=== PATIENT | female | born 1945 | race Caucasian/White ===

== ENCOUNTER 2017-12-24 08:00 | Outpatient (CLI) | payer MEDICARE ==
--- NOTE | 2017-12-24 11:12 | RAD ---
FOUR VIEWS LUMBAR SPINE: INDICATIONS: Low back pain that radiates down the left leg, for six weeks. COMPARISON: Prior radiographs dated 05/02/2014. FINDINGS: There are five lumbar type vertebrae. There is mild degenerative levoscoliosis at L3-L4. There is g rade 1 anterolisthesis of L4 on L5. There is advanced disk degenerative disease at L3-L4 and at L4-L 5. There is multilevel facet osteoarthrosis, most prominent affecting L3-L4 through L5-S1. There is slight retrolisthesis of L3 on L4. No acute fracture is evident. The retrolisthesis of L3-L4 reduc es with flexion. L4-L5 anterolisthesis is slightly accentuated with flexion and slightly reduces wit h extension. There is mild degenerative change in both SI joints. IMPRESSION: 1. Moderate to severe multilevel spondylosis of the lumbar spine, most pronounced at L3-L4 and at L4 -L5. 2. There is grade 1 anterolisthesis of L4 on L5 and slight retrolisthesis of L3 on L4. There is abn ormal translational motion at the intervertebral segments with flexion and extension. POS: [facility]
--- NOTE | 2017-12-24 11:18 | MRI ---
MRI OF THE LUMBAR SPINE WITHOUT CONTRAST: INDICATION: History of lumbar radiculopathy. COMPARISON: Prior lumbar spinal radiograph dated 05/02/14. FINDINGS: There are 5 lumbar-type vertebrae. There is grade I anterolisthesis of L4 on L5. Conus is seen to t erminate at L1. Visualized retroperitoneum and paravertebral soft tissues are unremarkable. At L5-S1, there is moderate left and mild right facet joint degenerative. There is no appreciable ce ntral canal or neural foraminal narrowing. At L4-5, there is moderate to severe central canal narrowing due to the anterolisthesis, facet hypert rophy, and broad-based bulge. Loss of disk space height in addition to the anterolisthesis induces m oderate bilateral neural foraminal narrowing. At L3-4, there is a broad-based bulge with facet hypertrophy inducing mild central canal narrowing wi th mild to moderate right neural foraminal narrowing. There is mild retrolisthesis. At L2-3, there is a broad-based bulge with facet hypertrophy inducing mild bilateral neural foraminal narrowing. At L1-2: There is a mild broad-based bulge with facet hypertrophy without appreciable central canal or neural foraminal narrowing. At T12-L1, there is mild broad-based bulge. IMPRESSION: 1. Moderate to severe multilevel spondylosis of the lumbar spine with grade I anterolisthesis of L4 and L5. The anterolisthesis at L4-5 in addition to facet hypertrophy and a broad-based bulge inducin g moderate to severe central canal narrowing with moderate bilateral neural foraminal narrowing. 2. Mild central canal narrowing at L3-4 with mild to moderate right neural foraminal narrowing. POS: [facility]
== END 2017-12-24 08:01 | disposition home or self-care (01) ==
LOC: SCSMRI 08:00
PROVIDERS: ATTEND Surgery
DX: M47.26 Other spondylosis with radiculopathy, lumbar region (principal); M43.16 Spondylolisthesis, lumbar region; R93.7 Abnormal findings on diagnostic imaging of other parts of musculoskeletal system; M51.16 Intervertebral disc disorders with radiculopathy, lumbar region; M48.061 Spinal stenosis, lumbar region without neurogenic claudication; M99.83 Other biomechanical lesions of lumbar region
CPT/HCPCS: 72120; 72148

== ENCOUNTER 2018-01-08 09:47 | Outpatient (CLI) | payer MEDICARE ==
--- NOTE | 2018-01-08 11:35 | CT ---
CT LUMBAR SPINE WITHOUT CONTRAST: HISTORY: Lumbar radiculopathy. Severe left buttock and leg pain, which has now cleared. Low back pain x6 wee ks. COMPARISON: None. TECHNIQUE: A lumbar spine CT is performed without contrast. Reformatted images are submitted for interpretation . FINDINGS: Symmetric attenuation of the psoas muscles. The visualized solid organs are unremarkable. Nonobstru cting calcification in the left renal pelvis. The visualized alimentary canal is unremarkable. Atherosclerosis of a nonaneurysmal aorta. Lumbar spine vertebral body height is maintained. No fracture. There is 6 mm of anterolisthesis of L4 upon L5. Limited evaluation of the contents of the central spinal canal and neural foramina due to technique. T11-T12: No significant central canal stenosis. The foramina are patent. T12-L1: No significant central canal stenosis. The neural foramina are patent. L1-L2: No significant central canal stenosis. The neural foramina are patent. L2-L3: Generalized disk bulge, ligamentum flavum thickening, and facet hypertrophy on mild central c anal stenosis. The neural foramina are patent bilaterally. L3-L4: Generalized disk bulge, ligamentum flavum thickening, and facet hypertrophy result in mild jag tral canal stenosis. Mild bilateral foraminal narrowing. L4-L5: Vacuum disk phenomenon. Generalized disk bulge, ligamentum flavum thickening, and facet hype rtrophy result in moderate to severe central canal stenosis. Moderate bilateral foraminal narrowing. L5-S1: There is a right laminectomy defect with soft tissue attenuation, suggesting scar tissue. No high-grade central canal stenosis. There is a left facetectomy. The neural foramina are patent. Calcification of the left ligamentum is noted. IMPRESSION: 1. Post surgical changes at L4-L5 and at L5-S1. 2. Moderate central canal stenosis at L4-L5. There is associated grade 1 anterolisthesis. POS: [facility]
== END 2018-01-08 09:48 | disposition home or self-care (01) ==
LOC: SCSCT 09:47
PROVIDERS: ATTEND Surgery
DX: M54.16 Radiculopathy, lumbar region (principal); M48.061 Spinal stenosis, lumbar region without neurogenic claudication; M43.16 Spondylolisthesis, lumbar region; Z98.890 Other specified postprocedural states
CPT/HCPCS: 72131

== ENCOUNTER 2018-12-09 14:50 | Emergency (ER) | payer MEDICARE ==
[2018-12-09 15:25] LABS: Bilirubin Negative (Negative); Blood, Urine Large (Negative); Glucose, Urine (Dipstick) Negative (Negative); Leukocyte Negative (Negative); Nitrite Negative (Negative); Protein, Urine (Dipstick) Negative (Neg-Trace); Specific Gravity, Urine 1.015 (1.005-1.030); Urobilinogen 0.2 mg/dL (0.2-1.0)
[2018-12-09 15:26] LABS: Clarity Hazy (Clear)
[2018-12-09 15:33] LABS: Bacteria/HPF 1+ HPF (None Seen); WBC/HPF None Seen HPF (0-3)
[2018-12-09 15:37] LABS: #Basophils 0.1 thou/uL (0.0-0.2); #Eosinphils 0.1 thou/uL (0.0-0.7); #Lymphocytes 1.4 thou/uL (1.20-3.40); #Monocytes 0.3 thou/uL (0.11-0.59); #Neutrophils 4.9 thou/uL (1.40-6.50); %Basophils 1.4 % (0.0-1.0); %Eosinophils 1.4 % (0.0-10.0); %Lymphocytes 20.8 % (21.0-51.0); %Monocytes 4.4 % (0.0-10.0); %Neutrophils 72.1 % (42.0-75.0); Hemoglobin 13.7 g/dL (12.0-16.0); Mean Corpuscular HGB CONC 30.7 g/dL (32.0-36.0); Mean Corpuscular Hemoglobin 26.9 pg (27.0-31.0); Mean Corpuscular Volume 87.7 fL (78.0-98.0); Mean Platelet Volume 8.7 fL (7.4-10.4); Platelet Count 240 thou/uL (130-400); RBC Distribution Width 13.5 % (11.5-14.5); Red Blood Cell (RBC) Count 5.09 mill/uL (4.20-5.40); White Blood Cell (WBC) Count 6.8 thou/uL (4.8-10.8)
[2018-12-09 15:53] LABS: ALT (SGPT) 33 U/L (8-55); AST (SGOT) 34 U/L (5-34); Albumin 4.2 g/dL (3.4-4.8); Alkaline Phosphatase 91 U/L (40-150); Anion Gap 14 mmol/L (10-20); BUN (Urea Nitrogen) 20 mg/dL (9.8-20.1); Bilirubin, Total 0.2 mg/dL (0.2-1.2); CK (CPK) 68 U/L (29-168); Calc. Creatinine Clearance 0 mL/min (70-130); Calcium 9.7 mg/dL (7.8-10.44); Carbon Dioxide 26 mmol/L (23-31); Chloride 102 mmol/L (98-107); Estimated GFR-MDRD 70; Globulin 2.9 g/dL (2.4-3.5); Glucose 70 mg/dL (83-110); Lipase 49 U/L (8-78); Potassium 4.3 mmol/L (3.5-5.1); Protein, Total 7.1 g/dL (6.0-8.3); Sodium 138 mmol/L (136-145)
--- NOTE | 2018-12-09 16:00 | RAD ---
SINGLE VIEW CHEST: HISTORY: Weakness. Malaise. Chest pain. COMPARISON: None. FINDINGS: Single view of the chest show normal sized cardiomediastinal silhouette. There is no evidence of cons olidation, mass, or pleural effusion. The bones are unremarkable. IMPRESSION: No evidence of acute cardiopulmonary disease. POS: [facility]
== END 2018-12-09 16:47 | disposition home or self-care (01) ==
LOC: SCSER 14:50
DX: R53.1 Weakness (principal); Z79.899 Other long term (current) drug therapy; Z79.82 Long term (current) use of aspirin
CPT/HCPCS: 71045; 80053; 81003; 81015; 82550; 83690; 84484; 85025; 93005; 96360

== ENCOUNTER 2018-12-12 10:08 | Observation (INO) | payer MEDICARE ==
[2018-12-12] MEDS ORDERED: Ondansetron PF 4 MG/2 ML Vial ONE (10:30)
[2018-12-12 10:39] LABS: #Basophils 0.1 thou/uL (0.0-0.2); #Lymphocytes 1.4 thou/uL (1.20-3.40); #Monocytes 0.2 thou/uL (0.11-0.59); #Neutrophils 7.1 thou/uL (1.40-6.50); %Basophils 1.2 % (0.0-1.0); %Eosinophils 0.3 % (0.0-10.0); %Lymphocytes 16.2 % (21.0-51.0); %Monocytes 2.3 % (0.0-10.0); %Neutrophils 80.1 % (42.0-75.0); Hemoglobin 13.5 g/dL (12.0-16.0); Mean Corpuscular Hemoglobin 26.7 pg (27.0-31.0); Mean Corpuscular Volume 86.2 fL (78.0-98.0); Mean Platelet Volume 7.4 fL (7.4-10.4); Platelet Count 223 thou/uL (130-400); RBC Distribution Width 12.9 % (11.5-14.5); Red Blood Cell (RBC) Count 5.03 mill/uL (4.20-5.40); White Blood Cell (WBC) Count 8.9 thou/uL (4.8-10.8)
[2018-12-12 10:54] LABS: ALT (SGPT) 30 U/L (8-55); AST (SGOT) 24 U/L (5-34); Alkaline Phosphatase 81 U/L (40-150); Anion Gap 12 mmol/L (10-20); BUN (Urea Nitrogen) 25 mg/dL (9.8-20.1); Bilirubin, Total 0.3 mg/dL (0.2-1.2); Calc. Creatinine Clearance 0 mL/min (70-130); Calcium 9.6 mg/dL (7.8-10.44); Carbon Dioxide 27 mmol/L (23-31); Chloride 104 mmol/L (98-107); Estimated GFR-MDRD 49; Globulin 2.5 g/dL (2.4-3.5); Glucose 117 mg/dL (83-110); Protein, Total 6.5 g/dL (6.0-8.3); Sodium 139 mmol/L (136-145)
[2018-12-12 11:15] LABS: Troponin I Less than 0.010 ng/mL (< 0.028)
[2018-12-12] MEDS ORDERED: Promethazine HCl 25 MG/ML VIAL ONE (11:25)
[2018-12-12 12:44] LABS: Bilirubin Negative (Negative); Blood, Urine Large (Negative); Glucose, Urine (Dipstick) Negative (Negative); Leukocyte Negative (Negative); Nitrite Negative (Negative); Protein, Urine (Dipstick) Negative (Neg-Trace); Specific Gravity, Urine 1.015 (1.005-1.030); Urobilinogen 0.2 mg/dL (0.2-1.0); pH, Urine 8.5 (5.0-9.0)
[2018-12-12 12:49] LABS: Bacteria/HPF Rare-Few HPF (None Seen); Clarity Hazy (Clear); RBC/HPF 21-50 HPF (0-3); WBC/HPF None Seen HPF (0-3)
[2018-12-12] MEDS ORDERED: Sodium Chloride 0.9% 1,000 ML IV SCH (13:00)
--- NOTE | 2018-12-12 13:34 | CT ---
CT ABDOMEN AND PELVIS WITH IV CONTRAST: DATE: 12/12/2018. PROVIDED CLINICAL HISTORY: Abdominal pain. FINDINGS: The visualized lung bases are free of significant opacity. The liver, spleen, pancreas, kidneys, and adrenal glands demonstrate an unremarkable CT appearance. No bowel dilatation, inflammatory fat stranding, free fluid, or free air apparent. The appendix was not distinctly identified. There is conspicuous colonic fecal retention suggesting constipation. Va scular calcification is noted involving the abdominal aorta. The osseous structures demonstrate no c oncerning osteoblastic or osteolytic lesions. Degenerative changes are seen involving the lumbar spi ne. IMPRESSION: Conspicuous colonic fecal retention, suggesting constipation. No evidence for an acute process. POS: [facility]
[2018-12-12] MEDS ORDERED: Ondansetron ODT 4 MG TAB SL PRN (14:29)
[2018-12-12] MEDS ORDERED: Acetaminophen 325 MG TAB PO PRN (14:29)
[2018-12-12 15:08] VITALS: BMI 20.9
[2018-12-12] MEDS ORDERED: Bisacodyl 5 MG TAB PO PRN (15:19)
[2018-12-12] MEDS: Ondansetron PF 4 MG/2 ML Vial IVP PRN (15:23)
[2018-12-12] MEDS ORDERED: Bisacodyl 10 MG SUPP PR SCH (15:30)
[2018-12-12] MEDS: Sodium Chloride 0.9% 1,000 ML IV SCH (15:57)
[2018-12-12] MEDS ORDERED: Senokot S 8.6-50 MG TAB PO SCH (16:15)
[2018-12-12] MEDS ORDERED: Enoxaparin Sodium 30 MG/0.3 ML SYRINGE SC SCH (16:30)
[2018-12-12] MEDS: traMADol HCl 50 MG TAB PO PRN ×2 (17:07→21:35)
--- NOTE | 2018-12-12 17:17 | HP ---
CHIEF COMPLAINT: Left-sided abdominal pain and nausea. HISTORY OF PRESENT ILLNESS: This is a pleasant 73-year-old woman who presents with complaints of left-sided abdominal pain that started early hours of this morning at approximately 6 a.m. She states the pain occasionally wraps around to her left side and has been intermittent since, it is worst, it is approximately 7/10 in severity, which she describes as a sharp pain. She reports having persistent nausea and vomited once early this morning. Denies any hematemesis. Reports having issues with constipation chronically, but most recently noticed her bowels have slowed down further since starting amitriptyline. Normally, she medicates with prunes and prune juice. Her last bowel movement was 3 days ago, and she states she had a very large movement; however, stool was hard. For the last week, she has had minimal oral intake and has been minimally active at times due to feeling generally unwell and weak. She states she began to feel poorly after receiving her second injection for shingles 2 weeks ago. She was in bed for 3 days at the early part of the last 2 weeks. She ended up with a decubitus ulcer, stage I. The patient states in the last week, she has been more active, but still very much fatigued. Denies having any fevers, chills, or sweats. She has not noted any melena or blood in stool. She has been passing wind. REVIEW OF SYSTEMS: The patient reports having an occasional throbbing headache which she attributes to previous issues with headache and facial spasms for which she underwent some sort of surgery in the past with placement of an implant at the brainstem. The patient sees Dr. Milton for this and actually has a followup next week. Denies any visual disturbances. Has not had any speech changes. She denies any recent fevers, chills, or sweats. No dizziness. Has not had any chest pain, palpitations, or shortness of breath. No cough or hemoptysis. Denies any urinary complaints such as dysuria, hematuria, urgency, or frequency. All other review of systems are negative. ALLERGIES: PENICILLIN. CURRENT MEDICATIONS: Amitriptyline. PHYSICAL EXAMINATION: GENERAL: The patient appears fatigued, but well developed and in no acute distress. VITAL SIGNS: Temperature 98.1, pulse 89, respirations 18, O2 saturation 96% on room air, and blood pressure 160/88. HEENT: Normocephalic and atraumatic. Pupils are equal, round, and reactive to light. Sclerae are without icterus. Oropharynx is clear. NECK: Supple without lymphadenopathy. LUNGS: Clear to auscultation bilaterally without wheezes, rales, or rhonchi. CARDIAC: Regular rate and rhythm. ABDOMEN: Soft with left lower quadrant tenderness to deep palpation. No guarding or rigidity. Mild left renal angle tenderness. EXTREMITIES: No clubbing, cyanosis, or edema. NEUROLOGIC: Alert and oriented x3. SKIN: Without rash or jaundice. PAST MEDICAL HISTORY: Chronic headaches. PAST SURGICAL HISTORY: 1. Brainstem surgery for placement and then adjustment of a "patch/implant.". 2. Tubal ligation. 3. Tonsillectomy. SOCIAL HISTORY: The patient is normally fully independent and lives with her . She denies any tobacco use or heavy alcohol use. No illicit drug use. LABORATORY DATA: Full blood count unremarkable. Sodium 139, potassium 4.0, BUN 25, creatinine 1.09, GFR 49, and glucose 117. LFTs unremarkable. Lipase normal. Albumin 4.0. Troponin negative. Urinalysis notable for large blood and 21 to 50 red blood cells with 4 to 6 squamous epithelial cells. Rare to few bacteria. No nitrites. IMAGING DATA: CT abdomen and pelvis done on 12/12/2018. Conspicuous colonic fecal retention suggesting constipation. No evidence for an acute process. No bowel dilatation, inflammatory fat stranding, free fluid, or free air appearing. Liver, spleen, pancreas, kidneys, and adrenal glands are unremarkable. Degenerative changes seen in the lumbar spine. IMPRESSION AND PLAN: Mrs. Bergman is a very pleasant 73-year-old woman who is being admitted for management of the following; 1. Abdominal pain, status post CT scan showing essentially fecal retention. We will give Dulcolax suppositories and p.o. senna. If no improvement, we will give a Fleet Enema. She has been passing wind despite episode of vomiting and does not have any abdominal distention. No signs of obstruction clinically or on imaging. We will continue to manage conservatively. For her pain, we will give tramadol. 2. Dehydration. The patient is generally weak and has had minimal oral intake. We would continue IV fluids. 3. Nausea. We will continue Zofran p.r.n. 4. Gastrointestinal prophylaxis. 5. Deep venous thrombosis prophylaxis. 6. Full code status. Her surrogate decision maker is her , Valerio Bergman. 7. Diet. We will provide clear liquid diet for now and advance as tolerated. The patient's case was discussed with Dr. Campos, who agrees upon care as described above. Job ID: [id number]
[2018-12-12] MEDS: Senokot S 8.6-50 MG TAB PO SCH (19:41)
[2018-12-12] MEDS: Famotidine/PF 20 mg/2ml Vial SLOW IVP SCH (19:41)
[2018-12-13] MEDS ORDERED: Ondansetron PF 4 MG/2 ML Vial IVP PRN (02:33)
[2018-12-13] MEDS ORDERED: Ondansetron ODT 4 MG TAB PO PRN (02:33)
[2018-12-13] MEDS: Ondansetron PF 4 MG/2 ML Vial IVP PRN (02:36)
[2018-12-13] MEDS: traMADol HCl 50 MG TAB PO PRN ×2 (02:38→06:19)
[2018-12-13] MEDS: Sodium Chloride 0.9% 1,000 ML IV SCH (02:40)
[2018-12-13 06:28] LABS: #Basophils 0.1 thou/uL (0.0-0.2); #Lymphocytes 1.7 thou/uL (1.20-3.40); #Monocytes 0.6 thou/uL (0.11-0.59); #Neutrophils 7.9 thou/uL (1.40-6.50); %Basophils 0.5 % (0.0-1.0); %Eosinophils 0.2 % (0.0-10.0); %Lymphocytes 16.7 % (21.0-51.0); %Monocytes 5.7 % (0.0-10.0); %Neutrophils 76.9 % (42.0-75.0); Hemoglobin 12.2 g/dL (12.0-16.0); Mean Corpuscular HGB CONC 32.1 g/dL (32.0-36.0); Mean Corpuscular Hemoglobin 28.2 pg (27.0-31.0); Mean Platelet Volume 7.9 fL (7.4-10.4); Platelet Count 238 thou/uL (130-400); RBC Distribution Width 12.5 % (11.5-14.5); Red Blood Cell (RBC) Count 4.31 mill/uL (4.20-5.40); White Blood Cell (WBC) Count 10.2 thou/uL (4.8-10.8)
[2018-12-13 06:51] LABS: Anion Gap 9 mmol/L (10-20); BUN (Urea Nitrogen) 19 mg/dL (9.8-20.1); Calc. Creatinine Clearance 52 mL/min (70-130); Calcium 8.8 mg/dL (7.8-10.44); Carbon Dioxide 27 mmol/L (23-31); Chloride 104 mmol/L (98-107); Estimated GFR-MDRD 65; Glucose 108 mg/dL (83-110); Potassium 3.9 mmol/L (3.5-5.1); Sodium 136 mmol/L (136-145)
[2018-12-13] MEDS: Senokot S 8.6-50 MG TAB PO SCH (08:10)
[2018-12-13] MEDS: Famotidine/PF 20 mg/2ml Vial SLOW IVP SCH (08:10)
[2018-12-13 08:16] VITALS: BP 100/51; TEMP 97.5
[2018-12-13] MEDS ORDERED: Enoxaparin Sodium 30 MG/0.3 ML SYRINGE SC SCH (09:00)
[2018-12-13] MEDS ORDERED: Magnesium Citrate 300 ML BOT PO PRN (11:01)
[2018-12-13] MEDS ORDERED: Fleet Enema 133 ML BOT PR SCH (11:30)
--- NOTE | 2018-12-14 00:22 | DIS ---
DATE OF ADMISSION: 12/12/2018 DATE OF DISCHARGE: 12/13/2018 ALLERGIES: PENICILLIN. CHIEF COMPLAINT: Left-sided abdominal pain and nausea. FINAL DIAGNOSES: 1. Constipation with colonic fecal retention per CT, s/p 2 large bowel movements , presenting symptoms now resolved. 2. Abdominal pain secondary to above, resolved. PROCEDURES PERFORMED: None. LABORATORY RESULTS: White blood cell count 10.2, hemoglobin 12.2, hematocrit 37.9, and platelet count 238. Sodium 136, potassium 3.9, chloride 104, carbon dioxide 27, anion gap 9, BUN 19, creatinine 0.86, and glucose 108. AST, ALT, and alkaline phosphatase all within normal limits. Creatine kinase 88. Troponin negative. Albumin 4.0. Urinalysis negative for UTI. IMAGING RESULTS: CT scan of abdomen and pelvis with IV contrast showed conspicuous colonic fecal retention, suggesting constipation. No evidence for an acute process, no bowel dilatation, inflammatory fat stranding, free fluid or free air apparent. Chest x-ray performed on 12/09/2018 showed no acute evidence of cardiopulmonary disease. CONSULTATIONS: None. HOSPITAL COURSE: The patient is a pleasant 73-year-old female with past medical history significant for chronic constipation in the past, and recent initiation of amitriptyline, who presented with left-sided abdominal pain and nausea that started yesterday around 6:00 a.m. She stated that the pain occasionally wrapped around her left side and at its worst was approximately 7 to 10 in severity. She described the pain as sharp. Associated symptoms included nausea and 1 episode of emesis. As mentioned, the patient does have a history of chronic constipation, however, she has noticed that it has been worse since starting on amitriptyline for some headache and facial spasms that she was having. Her last bowel movement was over 3 days ago prior to her arrival at the hospital. She was also more sedentary than normal, secondary to feeling poorly after a shingles vaccination. On arrival, CT of the abdomen and pelvis described as above was positive for feces, consistent with constipation. The patient was given Senokot as well as suppositories. She had 1 bowel movement the morning after her admission with some improvement in her symptoms. She was then given a Fleet enema. The patient had a large bowel movement, and feels much improved. All of her presenting symptoms have resolved. She has had no further abdominal discomfort or pain. She denies chest pain or shortness of breath. She has ambulated. PHYSICAL EXAMINATION: VITAL SIGNS: Blood pressure 100/51, pulse is 80, temperature afebrile, O2 saturation 95% on room air, and respirations 16. GENERAL: The patient is awake and alert, in no acute distress. She is sitting up comfortably in bed. HEENT: Atraumatic and normocephalic. Eye movement intact. NECK: Supple. No lymphadenopathy. No JVD. No carotid bruits. RESPIRATORY: Regular respiratory rate and pattern, clear to auscultation bilaterally. No rhonchi, wheeze, or crackles. CV: S1, S2. Regular rate and rhythm. No appreciable murmurs, rubs, or gallops. GI: Positive bowel sounds through all 4 quadrants. Nontender. PERIPHERAL VASCULAR: No lower extremity pitting edema. +2 DP pulses bilaterally. MUSCULOSKELETAL: No joint effusion or swelling. NEUROLOGIC: Awake and alert. Cranial nerves 2 through 12 grossly intact. No focal deficits. SKIN: Normal and dry. No skin discoloration. CONDITION AT DISCHARGE: Stable. DISCHARGE MEDICATIONS: 1. Atenolol 25 mg tablet one tablet p.o. daily. 2. Senokot 2 tablets p.o. b.i.d. 3. Ipratropium bromide nasal spray as directed. I have advised the patient to discontinue her amitriptyline given the worsening constipation after she started it. She has an appointment with her primary care physician, Dr. Milton this week to discuss. She will continue on high-fiber diet, along with ambulation to improve the frequency of bowel movements. She does have a stage I decubitus ulcer also that is being treated as an outpatient. It is healing well. All questions were answered to the patient's satisfaction. She will return with any recurrence of her symptoms. Care discussed with Dr. Napoles, who agrees with discharge as described above. Job ID: [id number] [facility]
== END 2018-12-13 17:02 | disposition home or self-care (01) ==
LOC: SCSER 10:08 → T4-B 13:16
PROVIDERS: ADMIT Internal Medicine; ATTEND Internal Medicine
DX: K59.09 Other constipation (principal); E86.0 Dehydration; Z79.899 Other long term (current) drug therapy; Z88.0 Allergy status to penicillin; Z98.890 Other specified postprocedural states
CPT/HCPCS: 74177; 80048; 80053; 82550; 83690; 84484; 85025 ×2; 93005; 94760; 96361 ×2; 96365; 96372 ×2; 96375 ×2; 96376 ×2; 97139; 99285; G0378 ×2; 36415; 81003; 81015; J1650; J2405; J2550; Q0162; S0028

== ENCOUNTER 2018-12-14 11:05 | Observation (INO) | payer MEDICARE ==
[2018-12-14] MEDS ORDERED: Fentanyl 100 MCG/2 ML VIAL ONE ×2 (11:31→14:06)
[2018-12-14 11:48] LABS: #Basophils 0.1 thou/uL (0.0-0.2); #Lymphocytes 2.1 thou/uL (1.20-3.40); #Monocytes 0.6 thou/uL (0.11-0.59); #Neutrophils 8.8 thou/uL (1.40-6.50); %Basophils 0.6 % (0.0-1.0); %Eosinophils 0.3 % (0.0-10.0); %Monocytes 5.3 % (0.0-10.0); %Neutrophils 75.9 % (42.0-75.0); Hemoglobin 12.9 g/dL (12.0-16.0); Mean Corpuscular HGB CONC 31.8 g/dL (32.0-36.0); Mean Corpuscular Hemoglobin 27.6 pg (27.0-31.0); Mean Corpuscular Volume 86.8 fL (78.0-98.0); Mean Platelet Volume 8.1 fL (7.4-10.4); Platelet Count 248 thou/uL (130-400); RBC Distribution Width 12.7 % (11.5-14.5); Red Blood Cell (RBC) Count 4.69 mill/uL (4.20-5.40); White Blood Cell (WBC) Count 11.6 thou/uL (4.8-10.8)
[2018-12-14] MEDS ORDERED: Ondansetron PF 4 MG/2 ML Vial ONE (12:04)
--- NOTE | 2018-12-14 12:07 | CT ---
CT AORTOGRAM CHEST AND ABDOMEN WITH IV CONTRAST: Date: 12/14/18 Multiple axial tomograms obtained of the chest and abdomen following aortogram protocol with multipla dewey reconstruction and 3D postprocessing. INDICATION: Abdominal pain. Correlation made to recent CT abdomen and pelvis dated 12/12/18 which showed evidence of fecal retention and constipation. The thoracic and abdominal aorta are unremarkable. There are mild atherosclerotic changes in the abdo sadie aorta. There is no evidence of aneurysm. No evidence of aortic dissection. The lungs appear clear. No infiltrate or effusion. Mediastinum unremarkable. The pulmonary arteries a re opacified. There is no evidence of proximal pulmonary embolus. Images through the abdomen show unremarkable liver, spleen, and pancreas, Adrenal glands and kidneys are unremarkable. Bowel loops are unremarkable. Stool again noted throughout the colon. IMPRESSION: No evidence of thoracic or abdominal aortic dissection or aneurysm. POS: [facility]
[2018-12-14 12:08] LABS: ALT (SGPT) 19 U/L (8-55); AST (SGOT) 19 U/L (5-34); Albumin 3.9 g/dL (3.4-4.8); Alkaline Phosphatase 83 U/L (40-150); Anion Gap 11 mmol/L (10-20); BUN (Urea Nitrogen) 13 mg/dL (9.8-20.1); Bilirubin, Total 0.4 mg/dL (0.2-1.2); Calc. Creatinine Clearance 0 mL/min (70-130); Calcium 9.4 mg/dL (7.8-10.44); Carbon Dioxide 28 mmol/L (23-31); Chloride 103 mmol/L (98-107); Estimated GFR-MDRD 58; Globulin 2.6 g/dL (2.4-3.5); Glucose 129 mg/dL (83-110); Lipase 14 U/L (8-78); Potassium 3.9 mmol/L (3.5-5.1); Protein, Total 6.5 g/dL (6.0-8.3); Sodium 138 mmol/L (136-145)
[2018-12-14] MEDS ORDERED: ISOVUE-370 76%-LOCM 1 ML ONE (13:44)
[2018-12-14] MEDS ORDERED: Acetaminophen 325 MG TAB PO PRN ×2 (16:06→16:11)
[2018-12-14] MEDS ORDERED: Sodium Chloride 0.65% Nasal 44 ML BOT EA NARE PRN (16:11)
[2018-12-14] MEDS ORDERED: Bisacodyl 10 MG SUPP PR PRN (16:11)
[2018-12-14] MEDS ORDERED: Ondansetron ODT 4 MG TAB PO PRN (16:11)
[2018-12-14] MEDS ORDERED: Zolpidem Tartrate 5 MG TAB PO PRN (16:11)
[2018-12-14] MEDS ORDERED: Ondansetron PF 4 MG/2 ML Vial IVP PRN (16:11)
[2018-12-14] MEDS ORDERED: Loratadine 10 MG TAB PO PRN (16:11)
[2018-12-14] MEDS ORDERED: Eucerin (Mineral Oil/Petrolatum,White) 30 gm Jar TOP PRN (16:11)
[2018-12-14] MEDS ORDERED: Bisacodyl 5 MG TAB PO PRN (16:11)
[2018-12-14] MEDS ORDERED: hydrALAZINE 20 MG/ML VIAL SLOW IVP PRN (16:11)
[2018-12-14] MEDS ORDERED: Artificial Tear Sol 15 ML BOT EA EYE PRN (16:11)
[2018-12-14] MEDS ORDERED: Senokot S 8.6-50 MG TAB PO PRN (16:11)
[2018-12-14] MEDS ORDERED: Cepastat Lozenges 1 LOZ PO PRN (16:11)
[2018-12-14] MEDS ORDERED: Diabetic Tussin 200 MG/10 ML UDCUP PO PRN (16:11)
[2018-12-14 16:16] LABS: Lactic Acid 0.9 mmol/L (0.5-2.2)
--- NOTE | 2018-12-14 16:27 | HP ---
PRIMARY CARE PHYSICIAN: Maurice Milton MD REASON FOR ADMISSION: Severe abdominal pain and constipation. HISTORY OF PRESENT ILLNESS: A 73-year-old female, who was admitted in our hospital on December 12, 2018. At that time, the patient presented to emergency room with left-sided abdominal pain, nausea. She had CT abdomen and pelvis which showed fecal retention suggestive of severe constipation without any acute process. After admission in the hospital, the patient was treated with stool softener and she had significant amount of bowel movement. The patient was discharged home yesterday, but the patient continued to have some type of abdominal pain without any improvement. Today, she had CT aortogram of chest and abdomen, which did not show any acute process, but she still has stool throughout in her colon. The patient predominantly has pain in her left lower quadrant. She denies any fever or chills. This time, she denies any nausea or vomiting. She denies any shortness of breath. The patient reports that this time constipation got worse after receiving amitriptyline. The patient also had recently nonspecific reaction after shingles injection. Normally, the patient has good bowel movement, but for last 3 to 4 days, she is suffering from more constipation as she tried prunes and [id number] medication without any significant improvement. The patient denies any narcotics. This time, she denies any abdominal distention, nausea, vomiting. She denies any hay fever, chills, but main problem is her left-sided abdominal pain. She denies any hematochezia, melena, or urinary tract infection symptoms. REVIEW OF SYSTEMS: CONSTITUTIONAL: Negative for weight loss or gain, ability to conduct usual activities. SKIN: Negative for rash, itching. EYES: Negative for double vision, pain. ENT/MOUTH: Negative for nose bleeding, neck stiffness, pain, tenderness. CARDIOVASCULAR: Negative for palpitations, dyspnea on exertion, orthopnea. RESPIRATORY: Negative for shortness of breath, wheezing, cough, hemoptysis, fever or night sweats. GASTROINTESTINAL: Negative for poor appetite, abdominal pain, heartburn, nausea, vomiting, constipation, or diarrhea. GENITOURINARY: Negative for urgency, frequency, dysuria, nocturia. MUSCULOSKELETAL: Negative for pain, swelling. NEUROLOGIC/PSYCHIATRIC: Negative for anxiety, depression. ALLERGY/IMMUNOLOGIC: Negative for skin rash, bleeding tendency. Please see my HPI for pertinent positives and negatives. All other review of systems reviewed and negative except as mentioned in HPI. ALLERGIES: PENICILLIN. CURRENT HOME MEDICATIONS: Recently, the patient was admitted in our hospital and discharged on; 1. Atenolol 25 mg p.o. daily. 2. Senokot two tablets twice daily. 3. Atrovent nasal spray as needed. PAST MEDICAL HISTORY: Hypertension. PAST SURGICAL HISTORY: Tonsillectomy, tubal ligation, surgery on her brain. PAST PSYCHIATRIC HISTORY: Reviewed and negative. SOCIAL HISTORY: The patient is , lives at home with her . No history of tobacco, alcohol, or illicit drug abuse. FAMILY HISTORY: No family history of coronary artery disease, stroke, or cancer. EMERGENCY ROOM COURSE: The patient is given fentanyl 50 mcg, Zofran 4 mg, fentanyl another 50 mcg and IV fluid. PHYSICAL EXAMINATION: VITAL SIGNS: Currently; blood pressure 182/98, pulse 88, respiratory rate 18, temperature 98.9, saturation 97% on room air. Weight 54.4 kg. GENERAL: The patient is currently alert, awake, no obvious acute distress. HEENT: Head; normocephalic, atraumatic. Eyes; pupils round, reactive to light. Extraocular muscle intact. ENT; oropharynx within normal limits. Moist mucous membranes. No oral lesion. No pharyngeal erythema. No exudate. NECK: Supple. No JVD. No thyromegaly. No carotid bruit. No jugular venous distention. LUNGS: Clear to auscultation without any rhonchi or rales. CARDIAC: S1 and S2 regular. No murmur. No gallop. No rub. ABDOMEN: Soft. The patient does have significant tenderness in left lower side. No peritoneal sign. No guarding. No rigidity. No rebound. No organomegaly. No mass. No suprapubic tenderness. BACK: Unremarkable. No CVA tenderness. EXTREMITIES: Upper extremities; passive movement of all joints are normal. Lower extremity, no edema. Good distal pulsation. SKIN: No skin rash. HEMATOLOGIC: No lymphadenopathy. PSYCHIATRIC: Normal affect. SIGNIFICANT LABORATORY DATA: The patient's previous hospitalization record reviewed. The patient had CT abdomen and pelvis which showed colonic fecal retention consistent with constipation without any other acute process. Today, CT dissection protocol abdomen and chest is negative for any acute process. CBC; WBC 11.6, hemoglobin 12.9, platelet 248. BMP; sodium 138, potassium 3.9, chloride 103, carbon dioxide 28, BUN 13, creatinine 0.95, glucose 129, calcium 9.4. Lactic acid 2.7. LFTs; AST 19, ALT 19, alkaline phosphatase 83, albumin 3.9, lipase 14. Troponin less than 0.010. ASSESSMENT: 1. Intractable left-sided abdominal pain. 2. Severe constipation. 3. Hypertension. 4. Lactic acidosis. PLAN: The patient will be observed on medical floor. It Operations Analyst will be consulted for possible colonoscopic evaluation. We will keep her on clear liquid diet and possibly bowel preparation. At this point, lactic acid is elevated and that is why suspected for a local process. The patient will need IV fluid. We will continue her home medication. We will avoid narcotics. Further recommendation based on GI recommendation. Plan of care discussed with the patient's family member at bedside. We will check thyroid function test. CODE STATUS: The patient is full code. The patient's is surrogate decision maker. DVT prophylaxis not needed because we are expecting discharge soon. Gastrointestinal prophylaxis, Pepcid 20 mg p.o. b.i.d. Job ID: [id number]
[2018-12-14] MEDS ORDERED: Fleet Enema 133 ML BOT PR SCH (17:00)
[2018-12-14] MEDS: Sodium Chloride 0.9% 1,000 ML IV SCH ×3 (17:24→21:01)
[2018-12-14] MEDS: Ketorolac Tromethamine 30 MG/ML VIAL IVP PRN (17:26)
[2018-12-14] MEDS: Famotidine 20 MG TAB PO SCH (21:01)
[2018-12-15] MEDS: Ketorolac Tromethamine 30 MG/ML VIAL IVP PRN ×3 (00:32→19:05)
[2018-12-15] MEDS: Sodium Chloride 0.9% 1,000 ML IV SCH ×4 (05:04→19:06)
[2018-12-15 05:18] LABS: #Basophils 0.1 thou/uL (0.0-0.2); #Eosinphils 0.1 thou/uL (0.0-0.7); #Lymphocytes 2.8 thou/uL (1.20-3.40); #Monocytes 0.7 thou/uL (0.11-0.59); #Neutrophils 4.6 thou/uL (1.40-6.50); %Basophils 0.9 % (0.0-1.0); %Eosinophils 1.7 % (0.0-10.0); %Lymphocytes 33.3 % (21.0-51.0); %Monocytes 8.2 % (0.0-10.0); %Neutrophils 55.8 % (42.0-75.0); Hemoglobin 12.4 g/dL (12.0-16.0); Mean Corpuscular Hemoglobin 28.1 pg (27.0-31.0); Mean Corpuscular Volume 87.9 fL (78.0-98.0); Mean Platelet Volume 7.8 fL (7.4-10.4); Platelet Count 235 thou/uL (130-400); RBC Distribution Width 12.3 % (11.5-14.5); Red Blood Cell (RBC) Count 4.39 mill/uL (4.20-5.40); White Blood Cell (WBC) Count 8.3 thou/uL (4.8-10.8)
[2018-12-15 05:35] LABS: Anion Gap 11 mmol/L (10-20); BUN (Urea Nitrogen) 10 mg/dL (9.8-20.1); Calc. Creatinine Clearance 41 mL/min (70-130); Calcium 8.5 mg/dL (7.8-10.44); Carbon Dioxide 26 mmol/L (23-31); Chloride 106 mmol/L (98-107); Estimated GFR-MDRD 51; Glucose 85 mg/dL (83-110); Potassium 3.8 mmol/L (3.5-5.1); Sodium 139 mmol/L (136-145)
[2018-12-15] MEDS: Atenolol 25 MG TAB PO SCH (09:07)
[2018-12-15] MEDS: Famotidine 20 MG TAB PO SCH ×2 (09:07→20:21)
[2018-12-15] MEDS ORDERED: GoLYTELY 4,000 ml Bottle PO SCH (11:45)
[2018-12-15 13:38] LABS: Bilirubin Negative (Negative); Blood, Urine Moderate (Negative); Clarity CLEAR (Clear); Glucose, Urine (Dipstick) Negative (Negative); Leukocyte Moderate (Negative); Nitrite Negative (Negative); Protein, Urine (Dipstick) Negative (Neg-Trace); Specific Gravity, Urine 1.011 (1.002-1.036); Urobilinogen 0.2 mg/dL (0.2-1.0); pH, Urine 6.5 (5.0-9.0)
[2018-12-15 13:41] LABS: Bacteria/HPF None Seen HPF (None Seen)
[2018-12-15 13:48] LABS: Pathc Cast-AUWi Flag 2.85 (0-2.49)
[2018-12-15 14:41] LABS: Renal Epithelial 0-3 HPF (0-3)
[2018-12-15 14:42] LABS: Hyaline Casts/LPF 0-3 HYALINE CAST LPF (0-3 Hyaline)
[2018-12-15 14:43] LABS: Urine Culture Reflex No No
[2018-12-15] MEDS: Polyethylene Glycol 3350 17 GM Packet PO SCH (15:44)
[2018-12-15] MEDS ORDERED: cefTRIAXone\\ROCEPHIN 1 GM in Sodium Chloride 0.9% 100 ML IVPB SCH (16:00)
--- NOTE | 2018-12-15 18:42 | CON ---
DATE OF CONSULTATION: HISTORY OF PRESENT ILLNESS: Ms. Bergman is a 73-year-old female, who was admitted to hospital last night for recurrent abdominal pain. She was a bounce back. She was here Thursday with abdominal pain, which was felt to be related to constipation. She had some enemas and laxes, felt better, went home on Thursday, returned Thursday, and was readmitted with severe pain. She felt like she is a little bit dehydrated when she came in the first time. She reports that she has had pain in her left side and they went to her left back, wrapped around there. She had some vomiting at home. She states she came in. She is told she is a little dehydrated. She was given fluids. Her constipation was attributed to the fact that she had shingles shot moving the week before that and also that she had been on some Elavil for facial tic and noticed her bowels are still a little bit with that. She has had no fever or chills. She has had no pain like this in the past. She has had no problems of constipation in the past. She had a colonoscopy in 2015, which was normal. She states that she never had kidney stones in the past. PAST MEDICAL HISTORY: Hypertension and facial tic. PAST SURGICAL HISTORY: Tonsillectomy, tubal ligations, and brain stimulator placed. She has had a colonoscopy in the 16. SOCIAL HISTORY: She is . Lives with her . Does not smoke, drink, or use drugs. Her son is 1 of the OR robot reps here. MEDICATIONS: At home; 1. Atenolol. 2. Senokot. 3. Atrovent. REVIEW OF SYSTEMS: She did have nausea and vomiting on Thursday, but none recently. She has had no weight loss or weight gain. She has had no blood in her stool. She has had no fever or chills. She has never had diverticulitis. She denies dysphagia, odynophagia, melena, hematochezia, shortness of breath, chest pain, or dyspnea on exertion. Denies any frequency, dysuria, or hematuria. She denies any history of chronic back pain or problem. She has had no rashes. PRESENT MEDICATIONS: 1. Tylenol. 2. Atenolol. 3. P.R.N. dulcolax. 4. Pepcid. 5. Toradol 15 IV q.6. 6. Zofran. 7. . 8. Normal saline 75 an hour. PHYSICAL EXAMINATION: GENERAL: Resting in bed, reading a book. She is pleasant, alert, and oriented to person, place, and time. VITAL SIGNS: Temperature is 98, pulse 65, and blood pressure 152/71. HEENT: Oropharynx, no lesions. Conjunctivae and sclerae are clear. LUNGS: Clear. HEART: Regular rhythm. ABDOMEN: She has a little bit of tenderness in the left lower quadrant. Intermittently, she has some CVA tenderness on the left side. She has no suprapubic tenderness. No right-sided abdominal tenderness. There is no guarding. There is no rebound. EXTREMITIES: No clubbing, cyanosis, or edema. NEUROLOGIC: Tics. PSYCHIATRIC: Normal. LABORATORY DATA: Urine had 7 to 10 red blood cells on the this month, 21 to 50 on the , previous to that, she has never had blood in her urine. White count was 11.6 on the , was 10.2 on the , 8.9 on the , and 8.3 today. Hemoglobin is 12.4 and platelet count 235. Sodium 139, potassium 3.8, BUN and creatinine 10 and 1.06. On the , her creatinine was 0.95, baseline looks about 0.7. Liver function tests normal. Lipase was normal. TSH was normal. CAT scans were both read showing some stool throughout the colon. A little bit of vascular calcifications on CT dissection protocol, but no other lesions were called on those imaging. Review of imaging, left kidney does not appear normal. Reviewed with Radiology. She has a stone in her proximal left ureter and left hydronephrosis. ASSESSMENT: Left-sided pain related to the obstructing uropathy. RECOMMENDATIONS: 1. Increase IV fluids to 100 mL an hour. 2. Continue Toradol p.r.n. for pain. 3. Urology consult. I have called Dr. Alexandra. He is on-call, who is going to come and see the patient. 4. I am going to sign off for now. There is no acute GI illness. Job ID: [id number]
--- NOTE | 2018-12-15 19:53 | PRG ---
DATE OF SERVICE: 12/15/2018 SUBJECTIVE: Ms. Bergman is a very pleasant 73-year-old female with past medical history significant for chronic constipation with recent admission for abdominal pain, who presented back to the hospital after discharge with complaints of severe left-sided abdominal and back pain. The patient's pain has been improved with Toradol. She has been seen by both GI and Urology today. Upon further review of her original CT scans, there does appear to be a kidney stone present in the left ureter. At this time, the patient denies any chest pain or shortness of breath. She currently denies any nausea. She is awake and alert, sitting up in bed, eating dinner. No complaints at this time. OBJECTIVE: VITAL SIGNS: Blood pressure 148/82, pulse 73, respirations are 16, and O2 saturations 99% on room air. GENERAL: This is a thin female, well appearing, in no acute distress. NECK: No JVD. No carotid bruits. Trachea is midline. CV: S1 and S2. Regular rate and rhythm. No appreciable murmurs, rubs, or gallops. LUNGS: Regular respiratory rate and pattern, clear to auscultation bilaterally. ABDOMEN: Positive bowel sounds. Mildly tender. EXTREMITIES: No edema. SKIN: Warm and dry. No rashes. LABORATORY DATA: White blood cell count 8.3, hemoglobin 12.4, hematocrit 38.6, and platelet count 235. Sodium 139, potassium 3.8, chloride 106, creatinine 1.06, GFR 51, glucose 85, lactic acid 0.9. Liver function enzymes, all within normal limits. Lipase was normal. ASSESSMENT: 1. Abdominal pain secondary to obstructive uropathy on the left. 2. Nephrolithiasis with left dilated ureter and hydronephrosis. 3. Chronic constipation. 4. Hypertension. PLAN: At this time, we will continue IV fluid resuscitation and advance her diet as tolerated. Urology will be taking her for ureteral stent tomorrow. She will continue MiraLAX twice a day per GI for her chronic constipation. Further recommendations based on hospital course. We will continue pain control. Care discussed with Dr. Napoles, who agrees with the plan as above. Job ID: [id number]
--- NOTE | 2018-12-15 19:58 | CON ---
DATE OF CONSULTATION: 12/15/2018 CONSULTING PHYSICIAN: Dr. Brink. CONSULTED PHYSICIAN: Dr. Alexandra. REASON FOR CONSULTATION: Left ureteral stone. HISTORY OF PRESENT ILLNESS: Ms. Bergman is a 73-year-old white female, who initially presented to the emergency room several days ago with left-sided flank pain. Prior to this, she initially received the shingles vaccine and subsequently started developing low-grade temperatures, sore throat, and otitis media type symptoms. She went to see her primary care physician, who recommended she go to the ER, at which time they did a full workup including imaging and labs. At that time, it was noted that she had microhematuria and she underwent just labs and urinalysis, which showed microhematuria, but otherwise was sent home with medications. Approximately a few days later, she started having severe left-sided flank pain, which brought her to the emergency room again. She underwent a CT scan, which demonstrated severe constipation as well as left hydronephrosis, which was not reported on the CT at that time. She was given laxatives and sent home again, but she presented back to the ER with worsening left flank and back pain. At this time, a CT aortic dissection protocol was performed and she was admitted to the hospital for further consultation. She now had nausea and vomiting and was having trouble keeping food down or liquids. She was admitted for IV hydration, pain control and further workup. Dr. Brink was consulted for further assistance on her GI issues that she still had retained stool in her colon despite laxative usage from her prior ER visit. At this point, it was noted that there was a left ureteral stone, which had been missed on both CT scans previously. There was also associated hydronephrosis with this ureteral stone. At this point, Dr. Brink consulted me for further assistance. On my discussion with the patient, she states that her pain has currently been under control with Toradol. Her nausea is better, but not gone as she has not vomited any further. Since the left flank pain began, she reports no fevers. The pain was 10/10 initially, but is now currently a 2/10. It was sharp and throbbing initially and now is just a dull ache. She reports no gross hematuria. She has no prior history of kidney stones, but does have a family history of stones. She denies any history of recurrent urinary tract infections, voiding difficulties, prior urologic surgeries, or dysuria or suprapubic pain. ALLERGIES: PENICILLIN. HOME MEDICATIONS: 1. Senokot. 2. Multivitamin. 3. Magnesium glycinate. 4. Ipratropium bromide. 5. Vitamin D. 6. Atenolol. 7. Aspirin. 8. Vitamin C. PAST MEDICAL HISTORY: Hypertension. PAST SURGICAL HISTORY: 1. Tonsillectomy. 2. Tubal ligation. 3. Brain surgery, not otherwise specified. FAMILY HISTORY: Significant for stone disease, but negative for coronary artery disease, strokes, or cancers. SOCIAL HISTORY: The patient is , lives at home with her . She has no history of tobacco, alcohol, or illicit drug use. REVIEW OF SYSTEMS: A 12-point review of systems was reviewed and otherwise negative other than what was commented on in the HPI specifically that was nausea with vomiting and left flank pain. She has not had any chest pain or shortness of breath. Remainder of 12-point review of systems was reviewed and otherwise negative. PHYSICAL EXAMINATION: VITAL SIGNS: Temperature 98.2, pulse 65, respirations 14, blood pressure 152/71, and saturation 97% on room air. GENERAL: No apparent distress, communicative, and alert, answering questions appropriately. Appears stated age. HEENT: Normocephalic and atraumatic. Sclerae nonicteric. Pupils are symmetric and round. Trachea midline. CARDIOVASCULAR: Regular rate and rhythm. Normal S1 and S2. Symmetric pulses. CHEST: No increased work of breathing. Symmetric expansion of the lungs, clear anteriorly. ABDOMEN: Soft, nontender, and nondistended. Positive bowel sounds. There is left CVA tenderness. : Deferred. EXTREMITIES: No clubbing, cyanosis, or edema. MUSCULOSKELETAL: No joint deformities or joint erythema noted. Full range of motion with normal gait. NEUROLOGIC: Cranial nerves 2 through 12 grossly intact. No focal or sensorimotor deficits identified. SKIN: Warm and dry. Good turgor. No rashes or lesions. PSYCHIATRIC: Alert and oriented x3. Appropriate mood and affect. LABORATORY DATA: On laboratory evaluation, the full set of labs are in the [facility] system which I have reviewed. Of note, the patient's white count is 8.3 with a hemoglobin of 12.4, platelet count of 235, creatinine is 1.06. Urinalysis demonstrates moderate blood, 11 to 20 white cells, 11 to 20 red cells, moderate leukocyte esterase, no bacteria, 7 to 10 squamous cells. Urine culture is not done. CT dissection protocol from December 14 demonstrates no evidence of thoracic or abdominal aortic aneurysm, however, there is noted left-sided hydronephrosis with no visible stone seen on that scan. Going back to December [address] scan, there was noted colonic fecal retention suggesting constipation without notation of the approximately 7 mm stone in the proximal left ureter with associated [id number] hydronephrosis. ASSESSMENT AND PLAN: A 73-year-old white female with a left-sided ureteral calculus with associated hydronephrosis and pain, which has been poorly controlled, resulting in multiple trips to the emergency room. At this point, I think the best treatment would be either ureteral stent placement or definitive treatment with ureteroscopy, laser lithotripsy. The patient's urinalysis is not very suggestive of urinary tract infection given the findings of her having a known stone, lack of nitrites or bacteria seen. However, I told her that if we put her on antibiotics, now her risk for developing significant infection due to ureteroscopy would be minimal. Alternatively, we could just place a stent and be completely safe and is planned for surgery next week. She states that she would rather get it all done at one time if it is safe enough and I do think it would be safe enough with her starting antibiotics now. Rocephin would have the broad-spectrum coverage rather than Levaquin, which is starting to have increasing rates of resistance. She does have a penicillin allergy, but this was reported many years ago with hallucinations and rash as a side effect. There is a very low cross-reactivity between ceftriaxone and penicillins, therefore, I have asked the nursing staff to check on her frequently after initiating administration of ceftriaxone. If there is any evidence of redness on her skin or a rash like symptoms, they are to notify me immediately and discontinue the ceftriaxone. At that point, we will probably either put her on gentamicin or Levaquin as prophylaxis for her surgery. Regarding the surgery itself, I explained how ureteroscopy is done and the need for a stent afterwards. We will plan to laser the stone and remove the pieces with a basket. Risks include, but are not limited to bleeding, infection, ureteral injury or damage, ureteral stricture formation, incomplete stone removal, damage to the bladder or kidney, and need for further procedures. We will plan to take her stent out about a week after the procedure and I explained the postoperative course and recovery. She understands and had appropriate time to ask questions, which she did and I have answered all of her questions. She would like to proceed tomorrow with ureteroscopy and laser lithotripsy with prophylaxis starting today. I will have all the set up and we will plan for surgery tomorrow. I will get a KUB before her surgery since the stone was no longer visible on the CT aortic dissection protocol, although, the distal ureter was not evaluated on the CT scan. It is likely that she now has her stone in the distal ureter, so long as the stone is still present and she is still having symptoms, we will plan for the surgery tomorrow as we had previously noted above. Job ID: [id number]
[2018-12-16] MEDS: Sodium Chloride 0.9% 1,000 ML IV SCH ×2 (03:41→11:13)
[2018-12-16] MEDS: Ketorolac Tromethamine 30 MG/ML VIAL IVP PRN (07:22)
--- NOTE | 2018-12-16 07:55 | RAD ---
FSupine abdomen: INDICATION: Nephrolithiasis COMPARISON: CT abdomen 12/12/2018. Calculus in the proximal left ureter demonstrated on that exam. FINDINGS: Prominent stool throughout the colon. Bowel content obscures the renal outlines. The calcul us in the proximal left ureter seen on CT is not definitely identified on this plain film. IMPRESSION: bowel content obscures the urinary tract. The left ureteral calculus is not identified.
[2018-12-16] MEDS: Atenolol 25 MG TAB PO SCH (08:11)
[2018-12-16] MEDS: Famotidine 20 MG TAB PO SCH (08:13)
[2018-12-16] MEDS: Polyethylene Glycol 3350 17 GM Packet PO SCH (08:13)
[2018-12-16 08:27] LABS: Anion Gap 15 mmol/L (10-20); BUN (Urea Nitrogen) 10 mg/dL (9.8-20.1); Calc. Creatinine Clearance 37 mL/min (70-130); Calcium 8.6 mg/dL (7.8-10.44); Carbon Dioxide 19 mmol/L (23-31); Chloride 109 mmol/L (98-107); Estimated GFR-MDRD 46; Glucose 89 mg/dL (83-110); Potassium 4.7 mmol/L (3.5-5.1); Sodium 138 mmol/L (136-145)
[2018-12-16] MEDS ORDERED: Fentanyl 100 MCG/2 ML VIAL ONE (08:45)
[2018-12-16] MEDS ORDERED: Ondansetron PF 4 MG/2 ML Vial ONE (09:42)
[2018-12-16] MEDS ORDERED: Metoclopramide HCl 10 MG/2 ML VIAL ONE (09:42)
[2018-12-16] MEDS ORDERED: ePHEDrine 50 MG/ML VIAL ONE (09:42)
[2018-12-16] MEDS ORDERED: PROPOFOL 200 MG/20 ML VIAL ONE (09:42)
[2018-12-16] MEDS ORDERED: Dexamethasone 20 MG/5 ML VIAL ONE (09:42)
[2018-12-16] MEDS ORDERED: Lidocaine 1% PF 5 ML VIAL ONE (09:42)
--- NOTE | 2018-12-16 10:40 | OP ---
DATE OF PROCEDURE: 12/16/2018 PREOPERATIVE DIAGNOSIS: Left ureteral stone. POSTOPERATIVE DIAGNOSIS: Left ureteral stone. PROCEDURES PERFORMED: Left ureteroscopy, laser lithotripsy, basket extraction of stone, placement of a 6 x 24 double-J stent. INDICATION FOR PROCEDURE: Ms. Bergman is a 73-year-old white female, who initially had presented to the ER for left flank and abdominal pain. She was seen twice on both occasions, and was diagnosed with something unrelated. It was ultimately discovered that she did indeed have a left ureteral stone after she was admitted to the hospital. At which time, I was consulted and I have discussed ureteroscopy with laser lithotripsy and she has agreed to proceed forward after discussion of risks and benefits. DESCRIPTION OF PROCEDURE: After identification of armband and verification of consent, the patient was brought back to the operating room, where she underwent general anesthesia with an LMA. She was then placed in dorsal lithotomy position, and prepped and draped in usual sterile fashion. After appropriate time-out, a lubricated 22-Italian rigid cystoscope was introduced per urethra into the bladder. The bladder was unremarkable other than cystocele but did not demonstrate any stones or calculi or abnormal features. Both ureters were in the orthotopic location. The left ureter was cannulated with a 0.035 Sensor wire, which was advanced past the stone up to the level of renal pelvis. The stone was radiolucent on fluoroscopy. The cystoscope was then removed and a semi-rigid ureteroscope was brought in alongside the Sensor wire into the distal ureter and up to the mid ureter, where the stone was encountered. There, a 365 micron laser fiber was used to fragment the stone into smaller pieces and then a 1.9-Italian ZeroTip Nitinol basket used to extract the stone fragments. Upon completion, there were no additional stone fragments within the ureter. Ureteroscopy was performed all the way up to the ureteropelvic junction and no additional stones were seen. Satisfied that the stone had been removed successfully, and there were no other stones within the ureter and no other stones had been seen in the kidney on CT scan, the ureteroscope was withdrawn and no other fragments were seen on the way out. The cystoscope was then backloaded over the Sensor wire back into the bladder and a 6 x 24 double-J stent was advanced over the Sensor wire up to the level of renal pelvis. The wire was removed leaving a good curl in the bladder and a partial curl in the kidney. No string was left attached to the stent. The bladder was then emptied and the cystoscope removed. The patient was then awakened, taken to PACU for recovery in stable condition. COMPLICATIONS: None. ESTIMATED BLOOD LOSS: Minimal. RETAINED TUBES AND DRAINS: A 6 x 24 double-J stent on the left. SPECIMEN: Stone for stone analysis. DISPOSITION: The patient will be discharged home and follow up with me in 1 week for cysto stent removal. Job ID: [id number]
[2018-12-16] MEDS ORDERED: Oxybutynin 5 MG TAB PO PRN (11:03)
[2018-12-16 11:12] VITALS: BP 148/72; TEMP 97.5
[2018-12-16] MEDS ORDERED: Phenazopyridine HCl 97.5 MG TABLET PO SCH (13:00)
--- NOTE | 2018-12-16 21:18 | DIS ---
DATE OF ADMISSION: 12/14/2018 DATE OF DISCHARGE: 12/16/2018 ALLERGIES: PENICILLINS. CHIEF COMPLAINT: Left-sided abdominal pain. FINAL DIAGNOSES: 1. Abdominal pain secondary to obstructive uropathy on the left, resolved. 2. Nephrolithiasis with left dilated ureter and hydronephrosis, status post lithotripsy and ureteral stent placement on the left. 3. Chronic constipation. 4. Hypertension. PROCEDURES PERFORMED: Left ureteroscopy, laser lithotripsy, basket extraction of stone, and placement of 6 x 24 double-J stent by Dr. Alexandra. LABORATORY RESULTS: White blood cell count 8.3, hemoglobin 12.4, hematocrit 38.6, and platelet count 235. Sodium 138, potassium 4.7, carbon dioxide 109, anion gap 19, BUN 10, and creatinine 1.16. Lactic acid 0.9. Liver function enzymes within normal range. IMAGING RESULTS: The patient did have a CT aortogram of the chest and abdomen with IV contrast, upon further review, there did appear to be a kidney stone in the pelvis of the left kidney with mild hydronephrosis and dilated ureter. CONSULTATIONS: 1. Dr. Brink, GI. 2. Dr. Alexandra, Urology. HOSPITAL COURSE: The patient is a very pleasant 73-year-old female with past medical history significant for hypertension, who was originally admitted to the hospital on 12/13, when she presented with abdominal pain and CT scan showed copious amounts of stool in the colon. The patient was given laxatives and enema, had two large bowel movements, and all of her presenting complaints did resolve. She was discharged home. She returned the next day with severe left-sided abdominal pain radiating throughout the left flank area. Upon further review of her original CT scans, there did appear to be a calculus present in the proximal left ureter. She was seen by both Dr. Brink and Dr. Alexandra in consultation. The following day, the patient was taken for lithotripsy and stent placement by Dr. Alexandra. She did undergo successful left ureteroscopy, laser lithotripsy, basket extraction of stone, and placement of 6 x 24 double-J stent. She tolerated the procedure very well. She states that her pain has now resolved. She has no nausea or vomiting. She has tolerated a full diet. She denies any chest pain or shortness of breath. PHYSICAL EXAMINATION: VITAL SIGNS: Blood pressure 148/72, pulse 73, O2 saturation is 94% on room air. The patient is afebrile. GENERAL: The patient is a well-appearing 73-year-old female, in no distress. She is sitting up in bed. NECK: No JVD. No carotid bruits. Trachea is midline. HEENT: Normocephalic, atraumatic. CV: S1 and S2. Regular rate and rhythm. LUNGS: Regular respiratory rate and pattern. Clear to auscultation bilaterally. ABDOMEN: Soft, positive bowel sounds. EXTREMITIES: No edema. SKIN: Warm and dry. No abrasions or rashes. CONDITION AT DISCHARGE: Stable. DISCHARGE MEDICATIONS: 1. Aspirin 81 mg daily. 2. Atenolol 25 mg daily. 3. Vitamin D3 1000 unit capsule one tablet p.o. daily. 4. Magnesium glycinate 100 mg tablet 1 tablet daily. 5. Senokot 8.6/50 mg tablet 2 tablets p.o. daily. New medication will be oxybutynin 5 mg tablet 1 tablet p.o. t.i.d. p.r.n. bladder spasm. The patient was also given a prescription for hydrocodone/acetaminophen 5/325 one tablet p.o. q.4 hours p.r.n. PLAN: The patient will be discharged home today per Dr. Alexandra. She will follow up with him in the office in 1 week for stent removal. Per Dr. Brink, she will continue MiraLAX twice daily for her chronic constipation. No colonoscopy was planned at this time. The above plan was discussed with Dr. Napoles, who agrees. Job ID: [id number]
[2018-12-21 10:18] LABS: CA Oxalate Monohydrate 90 % (.); CA Phosphate 10 % (.); Color Brown (.)
== END 2018-12-16 15:58 | disposition home or self-care (01) ==
LOC: ERS 11:05 → 2SW 16:09
PROVIDERS: ADMIT Internal Medicine; ATTEND Internal Medicine
PROC: 0TF78ZZ Fragmentation in Left Ureter, Via Natural or Artificial Opening Endoscopic (ICD-10-PCS; principal; 2018-12-16)
PROC: 0T778DZ Dilation of Left Ureter with Intraluminal Device, Via Natural or Artificial Opening Endoscopic (ICD-10-PCS; 2018-12-16)
DX: N13.2 Hydronephrosis with renal and ureteral calculous obstruction (principal); K59.09 Other constipation; I10 Essential (primary) hypertension; E87.2 Acidosis; Z79.82 Long term (current) use of aspirin; Z79.899 Other long term (current) drug therapy; Z88.0 Allergy status to penicillin
CPT/HCPCS: 52356; 71275; 74018; 76000; 80048 ×2; 80053; 81001; 82150; 82365; 83605; 83690; 84443; 84484; 85025 ×2; 88300; 96361 ×3; 96374; 96375 ×3; 96376 ×3; 97139; 99285; C1769; G0378 ×2; 36415; J0696; J1100; J1885; J2001; J2405; J2704; J2765; J3010; J3490; J7050; Q9966

== ENCOUNTER 2019-02-01 09:57 | Outpatient (CLI) | payer MEDICARE ==
--- NOTE | 2019-02-01 10:43 | ULT ---
Bilateral renal ultrasound CLINICAL INDICATION: History of recent previous partially obstructing left ureteral calculus. COMPARISON: CT abdomen and pelvis on 12/12/[address] lumbar spine on 01/08/2018. FINDINGS: Right kidney: There is a small echogenic masslike structure seen in the inferior pole right kidney me asuring 0.7 cm. This lesion demonstrated fat density on prior noncontrast CT lumbar spine on 01/08/2018 and likely represents a small angiomyolipoma. No additional renal mass, calculus, or hydron ephrosis is seen on the right. The right kidney measures 10.5 cm x 5.2 cm. Left kidney: There is no evidence of a renal mass, calculus, hydronephrosis. Previously noted left hy dronephrosis on prior CT examination is no longer seen.The left kidney measures 9.4 cm x 6.3 cm. Urinary bladder: Normal in appearance. The ureteral jets are seen bilaterally on color flow evaluatio n. IMPRESSION: 1. No evidence of hydronephrosis bilaterally. 2. 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
== END 2019-02-01 09:58 | disposition home or self-care (01) ==
LOC: SCSULT 09:57
PROVIDERS: ATTEND Urology
DX: N20.0 Calculus of kidney (principal); N28.9 Disorder of kidney and ureter, unspecified
CPT/HCPCS: 76770

== ENCOUNTER 2019-12-01 10:04 | Outpatient (CLI) | payer MEDICARE ==
--- NOTE | 2019-12-01 11:12 | ULT ---
Renal ultrasound: 12/01/2019 COMPARISON:02/01/2019 HISTORY:Nephrolithiasis, angiomyolipoma TECHNIQUE: Multiplanar grayscale sonographic imaging of the kidneys and urinary bladder obtained. FINDINGS: The right kidney measures9.2 x 4.8 x 5.1 cm and demonstratesa small cortical echogenic lesi on within the lower pole measuring approximately 9 x 7 x 6 mm, not significantly changed when compared to the prior examination. No hydronephrosis. The left kidney measures9.2 x 6.1 x 5.4 cm and demonstratesno hydronephrosis. There is a hypoechoic l esion within the mid pole of the left kidney measuring 1.0 x 1.1 x 1.3 cm. Secondary to location of this lesion, it is not definitively characterize. A cyst is favored. The urinary bladderappears grossly unremarkable. IMPRESSION:Evidence of a subcentimeter stable right cortically based echogenic lesion, likely on the basis of a small angiomyolipoma. 1.3 cm hypoechoic lesion within the midpole the left kidney. Cyst is favored. Follow-up ultrasound ad vised.
== END 2019-12-01 10:05 | disposition home or self-care (01) ==
LOC: SCSULT 10:04
PROVIDERS: ATTEND Urology
DX: D17.71 Benign lipomatous neoplasm of kidney (principal); N20.0 Calculus of kidney; N28.89 Other specified disorders of kidney and ureter
CPT/HCPCS: 76770